=== PATIENT | female | born 1975 | race Caucasian/White ===

== ENCOUNTER 2019-05-04 08:37 | Outpatient (CLI) | payer OTHER, SELFPAY ==
--- NOTE | 2019-05-04 08:47 | MM_ITS ---
WS: [id number] DIAGNOSTIC BILATERAL DIGITAL MAMMOGRAM WITH CAD HISTORY: No palpable area. COMPARISON: 03/04/2018 and 06/13/2015 and 03/18/2018 TECHNIQUE: Bilateral craniocaudad, mediolateral oblique, and mediolateral views are submitted. Spot c ompression RIGHT CC. Computer aided detection utilized. Breast composition: There are scattered areas of fibroglandular density. Normal parenchymal pattern. There are no mammographic abnormalities that need additional imaging. Scattered benign calcifications . No nipple retraction or skin thickening. No palpable area. No additional imaging is necessary at this time. Last mammogram reviewed from 03/04/2018 demonstrated a small lobulated nodule in the medial RIGHT breast which is no longer present. No enlarging masses o r distortion. No ultrasound is necessary. MM/[place] [id number] IMPRESSION: BI-RADS: 2-Benign FOLLOW UP: 1 Year Follow-up
== END 2019-05-04 08:38 | disposition home or self-care (01) ==
LOC: RADSHAW 08:41
PROVIDERS: Family Provider Family Medicine; PCP Nurse Practitioner Family; Visit Provider Nurse Practitioner Family
DX: N63.10 Unspecified lump in the right breast, unspecified quadrant (principal)
CPT/HCPCS: 77066

== ENCOUNTER → 2019-06-05 09:13 | Outpatient (BNVA) | payer OTHER, SELFPAY | PROVIDERS: Family Provider Family Medicine; PCP Nurse Practitioner Family; Visit Provider Nurse Practitioner Family | DX: E11.9 Type 2 diabetes mellitus without complications (principal) | CPT/HCPCS: 80048; 83036; 85007; 85027 ==

== ENCOUNTER → 2019-09-26 09:35 | Outpatient (BNVA) | payer OTHER, SELFPAY | PROVIDERS: Family Provider Family Medicine; PCP Nurse Practitioner Family; Visit Provider Nurse Practitioner Family | DX: E11.9 Type 2 diabetes mellitus without complications (principal); E78.9 Disorder of lipoprotein metabolism, unspecified; E03.9 Hypothyroidism, unspecified | CPT/HCPCS: 80053; 80061; 83036; 84443 ==

== ENCOUNTER → 2020-02-05 11:43 | Outpatient (BNVA) | payer OTHER, SELFPAY | PROVIDERS: Family Provider Family Medicine; PCP Nurse Practitioner Family; Visit Provider Nurse Practitioner Family | DX: Z11.59 Encounter for screening for other viral diseases (principal); J01.90 Acute sinusitis, unspecified; B96.89 Other specified bacterial agents as the cause of diseases classified elsewhere | CPT/HCPCS: 87635 ==

== ENCOUNTER → 2020-02-28 08:57 | Outpatient (BNVA) | payer OTHER, SELFPAY | PROVIDERS: Family Provider Family Medicine; PCP Nurse Practitioner Family; Visit Provider Nurse Practitioner Family | DX: E03.9 Hypothyroidism, unspecified (principal); E11.65 Type 2 diabetes mellitus with hyperglycemia; Z79.899 Other long term (current) drug therapy | CPT/HCPCS: 80053; 83036; 84443 ==

== ENCOUNTER → 2020-03-06 08:00 | Outpatient (BNVA) | payer OTHER, SELFPAY | PROVIDERS: Family Provider Family Medicine; Visit Provider Counselor Professional | DX: F63.0 Pathological gambling (principal); F41.1 Generalized anxiety disorder; F33.2 Major depressive disorder, recurrent severe without psychotic features | CPT/HCPCS: 90834 ==

== ENCOUNTER → 2020-03-08 07:40 | Outpatient (BNVA) | payer OTHER, SELFPAY | PROVIDERS: Family Provider Family Medicine; Visit Provider Counselor Professional | DX: F33.2 Major depressive disorder, recurrent severe without psychotic features (principal); Z63.0 Problems in relationship with spouse or partner; F41.1 Generalized anxiety disorder | CPT/HCPCS: 90834 ==

== ENCOUNTER → 2020-03-11 08:21 | Outpatient (BNVA) | payer OTHER, SELFPAY | PROVIDERS: Family Provider Family Medicine; Visit Provider Counselor Professional | DX: F33.2 Major depressive disorder, recurrent severe without psychotic features (principal); Z63.0 Problems in relationship with spouse or partner; F41.1 Generalized anxiety disorder | CPT/HCPCS: 90834 ==

== ENCOUNTER 2020-06-11 06:00 | Outpatient (CLI) | payer SELFPAY | END 2020-06-11 06:01 | disposition home or self-care (01) | LOC: LAB 06-23 10:49 | PROVIDERS: PCP Nurse Practitioner Family; Visit Provider Nurse Practitioner Family | DX: N76.0 Acute vaginitis (principal); B37.9 Candidiasis, unspecified | CPT/HCPCS: 87512; 87799 ==

== ENCOUNTER → 2020-06-20 08:10 | Outpatient (BNVA) | payer OTHER, SELFPAY | PROVIDERS: Visit Provider Dermatology | DX: Z13.6 Encounter for screening for cardiovascular disorders (principal) | CPT/HCPCS: 80061; 82947; 83036 ==

== ENCOUNTER → 2020-08-06 08:23 | Outpatient (BNVA) | payer OTHER, SELFPAY | PROVIDERS: Visit Provider Nurse Practitioner Family | DX: E03.9 Hypothyroidism, unspecified (principal) | CPT/HCPCS: 84443 ==

== ENCOUNTER → 2020-11-13 08:37 | Outpatient (BNVA) | payer OTHER, SELFPAY | PROVIDERS: PCP Nurse Practitioner Family; Visit Provider Nurse Practitioner Family | DX: E11.65 Type 2 diabetes mellitus with hyperglycemia (principal); E03.9 Hypothyroidism, unspecified; F32.9 Major depressive disorder, single episode, unspecified; E78.5 Hyperlipidemia, unspecified | CPT/HCPCS: 80053; 80061; 83036; 84443 ==

== ENCOUNTER → 2021-02-11 08:31 | Outpatient (BNVA) | payer OTHER, SELFPAY | PROVIDERS: PCP Nurse Practitioner Family; Visit Provider Nurse Practitioner Family | DX: E11.65 Type 2 diabetes mellitus with hyperglycemia (principal) | CPT/HCPCS: 80053; 83036 ==

== ENCOUNTER 2021-02-15 11:58 | Emergency (ER) | payer OTHER, SELFPAY ==
[2021-02-15 12:07] VITALS: BP 138/86; PULSE 85; RESP 18; TEMP 36.6; O2SAT 97; BMI 31.3
[2021-02-15 12:19] VITALS: BP 145/103; PULSE 84; RESP 16; TEMP 36.9; O2SAT 97
--- NOTE | 2021-02-15 12:26 | ED_ITS ---
HPI - Fall General: Chief Complaint: Extremity Injury, Lower Stated Complaint: L HIP INJURY:FELL THURS PM/PCP STATES FX Time Seen by Provider: 02/15/21 12:01 Source: patient Mode of arrival: ambulatory Limitations: no limitations History of Present Illness: HPI Narrative: Patient is a 45-year-old female who presents to ED today along with her for evaluation of her left hip injury. Patient tells me 2 days ago she was standing on a stool at a height of approximately 2-3 feet hanging curtains when she accidentally fell off and landed onto her left hip. Patient states she was seen at [facility] in [place] and had an x-ray of the hip performed which showed a questionable lucency through her greater trochanter suspicious for nondisplaced fracture and recommended CT scan for further evaluation. Patient is also telling me she is having lower back pain. She has been ambulatory since the fall but has significant discomfort and states she had to leave work early yesterday secondary to this pain. She denies any other injuries or complaints at this time. She denies striking her head or LOC during the fall. No neck pain. MD complaint: fall Onset (ago): day(s) Fall from: from height (distance) (2-3 ft) Fall witnessed: yes, by family Place fall occurred: home Loss of consciousness: None Prolonged down time: no Symptoms prior to fall: none Context: tripped/slipped Associated symptoms-after fall: Denies abdominal pain, chest pain, hematuria, lightheadedness or neck pain Review of Systems Const: Denies: fever(s), chills or body aches Eyes: Denies: change in vision Card: Denies: chest pain, palpitations, lightheadedness, syncope or pre-s yncope Resp: Denies: dyspnea GI: Denies: abdominal pain, nausea or vomiting : Denies: flank pain, dysuria or hematuria Musc: Reports: back pain and joint pain (L hip); Denies: neck pain, extremity pain, joint warmth, joint stiffness, limited range of motion, muscle cramps or muscle weakness Skin/Breast: Reports: other (abrasion/bruising ) Neuro: Denies: numbness in extremities, weakness in extremities or sensory changes [facility] ED PFSH: Medical History Anxiety Breast implant status Cystocele with rectocele 2 repairs Diabetes type 2, uncontrolled Hypothyroidism Psychiatric care Surgical History H/O tubal ligation H/O: hysterectomy S/P section Family History Mother Diabetes Thyroid condition Heart disease Father Diabetes Hyperlipidemia Hypertension Heart disease Grandmother Diabetes maternal Heart disease maternal Breast cancer, Onset Age: 67 maternal Grandfather Heart disease maternal Family/Other Uterine cancer, Onset Age: 65 maternal aunt Ovarian cancer, Onset Age: 65 maternal aunt Denies family history of Colon cancer Clotting disorder Anesthesia complication Bleeding disorder Stroke Social History Smoking and tobacco status: never smoked Second hand smoke exposure: No Alcohol intake: never Current gender identity: Female Physical Exam Const: COMMON NORMALS: no acute distress, patient oriented x3, no limitations, alert and well nourished GENERAL APPEARANCE: cooperative ORIENTATION/CONSCIOUSNESS: Yes awake, Yes oriented to person, Yes oriented to place and Yes oriented to time HENMT: COMMON NORMALS: normocephalic and atraumatic HEAD & SCALP: normal to inspection, normocephalic and atraumatic Neck/C-Spine: COMMON NORMALS: full ROM CERVICAL SPINE: No pain with cervical ROM and No Cervical spine tenderness Back/Pelvis: THORACIC SPINE/UPPER BACK: Yes normal to inspection, Yes thoracic ROM normal and No thoracic spinal tenderness LUMBAR SPINE/LOWER BACK: Yes lumbar ROM normal, Yes lumbar spinal tenderness Lumbar spinal tenderness location: L4 and L5 and Yes paraspinal muscle tenderness Lumbar paraspinal muscle tenderness: left PELVIS: Yes buttocks normal SACRUM: tenderness OTHER: TTP L lateral hip overlying greater trochanter; skin with mod superficial abrasion and surrounding ecchymosis Extremity: GENERAL: Yes normal exam except as noted LEFT LOWER EXTREMITY: Yes hip joint (TTP lateral; full but painful ROM) Left hip: Yes neurovascular exam (normal), Yes knee joint Left knee: Yes ROM (normal) and Yes foot & digits (normal DP/PT pulses and cap refill) Neuro: COMMON NORMALS: patient oriented x3, moves all extremities, no focal motor deficits and no sensory deficits noted SENSORIUM/ORIENTATION: Yes alert, Yes oriented to person, Yes oriented to place and Yes oriented to time Skin: NARRATIVE SKIN EXAM: see pelvis/extremity for pertinent skin findings; otherwise normal skin exam Course Vital Signs: Vital signs: Vital Signs Temperature 98.3 F 02/15/21 13:42 Pulse Rate 68 02/15/21 13:42 Respiratory Rate 16 02/15/21 13:42 Blood Pressure 115/67 02/15/21 13:42 Pulse Oximetry 97 02/15/21 13:42 MDM - Fall MDM Narrative: Medical decision making narrative: CT bony pelvis/lumbar spine negative for acute fracture. Patient is stable for DC with plan for pain control. Follow up with PCP in 3-5 days if pain is not improving. Imaging Data^: CT bony pelvis: Radiologist's impression: Rosie Graham[address] [place] [id number] Scan ReportSigned Patient: Marlin Sargent #: [id number]: 1975Acct#:[id number]/Sex: 45 / FADM Date: 02/15/21Loc: ERRoom/Bed:Attending Dr: Ordering Provider/Ordering MD: Isadora Singh Date of Service: 02/15/21 Procedure(s): CT bony pelvis [id number] Accession Number(s): [id number] Report Number: [id number] PROCEDURE INFORMATION: Exam: CT Pelvis Without Contrast; Skeletal Exam date and time: 02/15/2021 12:25 PM Age: 45 years old Clinical indication: Injury or trauma; Fall; Blunt trauma (contusions or hematomas); Left; Hip; Additional info: Fall, pain, questionable FX on XR TECHNIQUE: Imaging protocol: Computed tomography images of the pelvis without contrast. Exam focused on the skeletal structures. Radiation optimization: All CT scans at this facility use at least one of these dose optimization techniques: automated exposure control; mA and/or kV adjustment per patient size (includes targeted exams where dose is matched to clinical indication); or iterative reconstruction. COMPARISON: 1. CT abdomen pelvis w con* [id number] 04/24/2019 10:[address] lumbar spine wo con* [id number] 02/15/2021 12:40:37 PM RADIATION DOSE METRICS: Total DLP (mGy-cm): 844.73 FINDINGS: Bowel: Included bowel normal in caliber. No inflammatory changes. Evidence of appendectomy. Bladder: Bladder partially filled and normal in appearance. Included ureters normal in caliber. No stones. Reproductive: Hysterectomy. No adnexal mass. Bones/joints: Bones intact and normally aligned. No fracture or dislocation. Soft tissues: No hematoma. Postsurgical changes of the ventral abdominal wall with chronic lens shaped fluid collection superficial to the rectus sheath at midline measuring 5.1 x 1.3 x 3.0 cm and 10 Hounsfield units (no axial image 44 series 3 and sagittal image 65 series 602), similar to prior. Nothing to suggest infection. CT/CT bony pelvis [id number] IMPRESSION: No acute findings. Radiation Dose CTDIVOL = (mGy): DLP = 844.73 (mGy-cm) Dictated By:Rajinder Trujillo MDSigned By:Rajinder Trujillo MDSigned Date/Time:02/15/21 1327DD/ 1225 CT lumbar: Radiologist's impression: [address] [id number] Scan ReportSigned Patient: Marlin Sargent #: [id number]: 1975Acct#:[id number]/Sex: 45 / FADM Date: 02/15/21Loc: ERRoom/Bed:Attending Dr: Ordering Provider/Ordering MD: Isadora Singh Date of Service: 02/15/21 Procedure(s): CT lumbar spine wo con* [id number] Accession Number(s): [id number] Report Number: [id number] PROCEDURE INFORMATION: Exam: CT Lumbar Spine Without Contrast Exam date and time: 02/15/2021 12:24 PM Age: 45 years old Clinical indication: Injury or trauma; Fall; Blunt trauma (contusions or hematomas); Additional info: Fall/back pain TECHNIQUE: Imaging protocol: Computed tomography images of the lumbar spine without contrast. Radiation optimization: All CT scans at this facility use at least one of these dose optimization techniques: automated exposure control; mA and/or kV adjustment per patient size (includes targeted exams where dose is matched to clinical indication); or iterative reconstruction. COMPARISON: 1. CT bony pelvis [id number] 02/15/2021 12:[address] abdomen pelvis w con* [id number] 04/24/2019 10:18:30 AM RADIATION DOSE METRICS: Total DLP (mGy-cm): 2327.93 FINDINGS: Vertebrae: No acute fracture. There is a chronic unilateral pars defect at L5 on the right, unchanged since 2019. Normal alignment of the spine. Discs/Spinal canal/Neural foramina: No significant disc protrusion. No severe spinal canal stenosis. No significant neural foraminal narrowing. Soft tissues: Unremarkable. Other: Incidental punctate nonobstructing right lower pole renal calculus unchanged from prior. CT/CT lumbar spine wo con* [id number] IMPRESSION: No acute findings. Radiation Dose CTDIVOL = (mGy): DLP = 2327.93 (mGy-cm) Dictated By:Rajinder Trujillo MDSigned By:Rajinder Trujillo MDSigned Date/Time:02/15/21 1331DD/ 1224 Discharge Plan Discharge Patient Disposition: Home Clinical Impression: Contusion of hip and thigh Qualifiers: Encounter type: initial encounter Laterality: left Qualified Code(s): S70.02XA - Contusion of left hip, initial encounter Condition: Stable Prescriptions: New hydrocodone-acetaminophen 5-325 mg tablet 1 tab PO Q6H PRN (Reason: pain) Qty: 14 RF: 0 No Action metformin 1,000 mg tablet 1,000 mg PO BID RF: 0 metformin 500 mg tablet 500 mg PO DAILY RF: 0 ceftriaxone 1 gram recon soln 1 gm IM ONCE Qty: 1 RF: 0 lidocaine (PF) 20 mg/mL (2 %) solution 20 mg IM ONCE Qty: 1 RF: 0 Lantus Solostar U-100 Insulin 100 unit/mL (3 mL) insulin pen 42 unit SUBCUT DAILY RF: 0 estradiol 2 mg (7.5 mcg /24 hour) ring 1 vag ring vaginal Q90D Qty: 1 RF: 4 citalopram [Celexa] 40 mg tablet 40 mg PO DAILY RF: 0 aripiprazole [Abilify] 2 mg tablet 2 mg PO DAILY Qty: 30 RF: 2 propranolol 20 mg tablet 20 mg PO BID PRN (Reason: anxiety) Qty: 60 RF: 2 cyclobenzaprine 10 mg tablet 10 mg PO TID PRN (Reason: muscle spasm) Qty: 30 RF: 0 (DME) Dexcom G5 Single Needle Operator Misc See Rx Instructions .ROUTE .MEDSUPPLY Qty: 1 RF: 0 (DME) blood-glucose transmitter Device See Rx Instructions .ROUTE .MEDSUPPLY Qty: 1 RF: 1 estradiol 0.01 % (0.1 mg/gram) cream 1 appful vaginal .THREE TIMES DELFINO Qty: 42.5 RF: 1 (DME) Dexcom G5-G4 Sensor Device See Rx Instructions .ROUTE .MEDSUPPLY Qty: 3 RF: 3 levothyroxine 137 mcg tablet 137 mcg PO DAILY Qty: 30 RF: 1 fluconazole [Diflucan] 150 mg tablet 150 mg PO Q3D Qty: 2 RF: 1 Discharge Orders: Discharge ED (Routine); Ordered 02/15/21 Ordered By: Isadora Singh Referrals: Bekah Daniels FNP [Primary Care Provider] - Patient Instructions: Contusion in Adults (ED), Opioid Safety Activity Restrictions/Additional Instructions: [facility] is committed to fighting the nationwide opiate epidemic. We are providing ALL patients with information regarding opiate safety. If you received opiate pain medication during your stay or if you received a prescription for opiate pain medication-please review this handout. If not, you may disregard. Thank you. Coding Level of Care Code ED Reheater for Anisha Fwd Exam Detailed
[2021-02-15 12:30] VITALS: RESP 16; O2SAT 98
[2021-02-15] MEDS: morphine 4 mg/mL SDV 1 mL IM (12:30)
[2021-02-15 12:53] VITALS: BP 119/72; PULSE 64; RESP 16; O2SAT 96
[2021-02-15 13:42] VITALS: BP 115/67; PULSE 68; RESP 16; TEMP 36.8; O2SAT 97
== END 2021-02-15 13:48 | disposition home or self-care (01) ==
PROVIDERS: Emergency Provider Physician Assistant; PCP Nurse Practitioner Family
DX: S70.02XA Contusion of left hip, initial encounter (principal); S70.12XA Contusion of left thigh, initial encounter; Z79.84 Long term (current) use of oral hypoglycemic drugs; Z79.4 Long term (current) use of insulin; E11.9 Type 2 diabetes mellitus without complications; W07.XXXA Fall from chair, initial encounter
CPT/HCPCS: 72131; 72192; 96372; 99283; J2270

== ENCOUNTER 2021-02-21 16:22 | Outpatient (CLI) | payer OTHER, SELFPAY ==
--- NOTE | 2021-02-21 16:45 | MRR_ITS ---
PROCEDURE INFORMATION: Exam: MR Left Lower Extremity Joint Without Contrast; Hip Exam date and time: 02/21/2021 4:45 PM Age: 45 years old Clinical indication: Injury or trauma; Fall; Blunt trauma and swelling (edema); Hip and thigh or upper leg; Injury date: 1 week 02/15; Patient HX: PT. Reports continued left hip pain increased with weight bearing. PT. Has swelling of left thigh with large hematoma approx 4 cm diameter noted. ; Additional info: M25.552 - pain in left hip, PT. Has scanned xray reports and continue to have pain to TECHNIQUE: Imaging protocol: MR of the Left lower extremity joint without contrast. Exam focused on the hip. COMPARISON: CT bony pelvis [id number] 02/15/2021 12:38 PM FINDINGS: Bones and cartilage: There is stranding of the subcutaneous tissues along the lateral aspect of the left hip region, which given clinical history is consistent with contusion. Mild levocurvature of the lumbar spine noted. Joint spaces: No joint effusion. Labrum: Unremarkable. No tear. TENDONS: Tendons of iliopsoas group: Unremarkable. No evidence of tear. Tendons of medial compartment of thigh: Unremarkable. No evidence of tear. Tendons of lateral rotators of hip: Unremarkable. No evidence of tear. Tendons of gluteal group: Unremarkable. No evidence of tear. Muscles: Unremarkable. Soft tissues: Unremarkable. MR/MR hip LT wo con* [id number] IMPRESSION: Mild edematous changes of the subcutaneous tissues along the lateral aspect of the left hip region. Otherwise unremarkable MRI examination of the left hip/lower extremity. Radiation Dose CTDIVOL = (mGy): DLP = (mGy-cm)
== END 2021-02-21 16:23 | disposition home or self-care (01) ==
LOC: RADSHAW 16:34
PROVIDERS: PCP Nurse Practitioner Family; Visit Provider Nurse Practitioner Family
DX: M25.552 Pain in left hip (principal)
CPT/HCPCS: 73721

== ENCOUNTER 2021-03-06 10:15 | Outpatient (CLI) | payer OTHER, SELFPAY ==
--- NOTE | 2021-03-06 10:30 | MM_ITS ---
WS: [id number] BILATERAL DIGITAL SCREENING MAMMOGRAPHY WITH CAD CLINICAL INFORMATION: Z12.39 - Encounter for other screening for malignant neop... HISTORY: Screening mammogram. No current complaints. COMPARISON: 26 December 2019, TECHNIQUE: Bilateral CC and MLO views. FINDINGS: Bilateral breast implants appear mammographically intact. Scattered fibroglandular densities bilaterally. Punctate and clustered punctate calcifications. No s uspicious focal mass, asymmetry, calcifications, or architectural distortion. No evidence of malignan cy. MM/[place] [id number] IMPRESSION: BI-RADS: 2-Benign FOLLOW UP: 1 Year Follow-up Recommend return to annual screening mammography.
== END 2021-03-06 10:16 | disposition home or self-care (01) ==
PROVIDERS: PCP Nurse Practitioner Family; Visit Provider Nurse Practitioner Family
DX: Z12.39 Encounter for other screening for malignant neoplasm of breast (principal)
CPT/HCPCS: 77067

== ENCOUNTER 2021-04-02 13:22 | Outpatient (CLI) | payer OTHER, SELFPAY ==
[2021-04-02 14:07] LABS: Troponin(5th) Baseline 6 ng/L (0-10)
[2021-04-02 14:17] LABS: Alanine Aminotransferase 23 U/L (0-33); Albumin Level 4.3 g/dL (3.5-5.2); Alkaline Phosphatase 95 IU/L (35-105); Anion Gap 19.9 (5-19); Aspartate Amino Transferase 17 U/L (0-32); Blood Urea Nitrogen 9 mg/dL (6-20); Carbon Dioxide 21 mmol/L (22-29); Chloride 99 mmol/L (98-107); Globulin 3.1 g/dL (1.3-4.6); Glomerular Filtration Rate 76.9 mL/min (90-130); Glucose 361 mg/dL (65-115); Osmolality Calculated 295 mOsm/kg (285-295); Potassium 3.9 mmol/L (3.5-5.1); Sodium 136 mmol/L (136-145); Thyroid Stimulating Hormone 1.33 uIU/mL (0.27-4.20); Total Bilirubin 0.2 mg/dL (0.15-1.2); Total Protein 7.4 g/dL (6.6-8.7)
== END 2021-04-02 13:23 | disposition home or self-care (01) ==
LOC: LAB 13:29
PROVIDERS: PCP Nurse Practitioner Family; Visit Provider Nurse Practitioner Family
DX: E11.65 Type 2 diabetes mellitus with hyperglycemia (principal); E03.9 Hypothyroidism, unspecified; R07.89 Other chest pain
CPT/HCPCS: 36415; 80053; 81000; 84443; 84484

== ENCOUNTER 2021-04-15 15:31 | Outpatient (CLI) | payer OTHER, SELFPAY ==
--- NOTE | 2021-04-15 15:49 | MR_ITS ---
WS: [id number] MRI HEAD WITHOUT CONTRAST TECHNIQUE: Sagittal T1, T2 axial, T2 axial FLAIR, axial and coronal T1 images, axial susceptibility w eighted imaging, axial diffusion weighted images, and coronal T2 images were obtained. CLINICAL INFORMATION: UNSPECIFIED VISUAL LOSS COMPARISON: None. FINDINGS: No evidence of restricted diffusion to suggest acute ischemia. Ventricular system and basal cisterns are patent. A few tiny foci of T2 hyperintensity in the frontal subcortical and periventricular white matter. No significant parenchymal volume loss. Normal corpus callosum. Normal posterior fossa. Norm al vascular flow voids at the skull base. No extra-axial fluid collections. No evidence of mass or ma ss effect. No hemosiderin on susceptibly weighted images. Normal optic chiasm and pituitary infundibulum. Tempor al lobes and hippocampal formations are normal in appearance. Mild mucosal thickening right mastoid a ir cells. Paranasal sinuses are well aerated. MR/MR head wo con* [id number] IMPRESSION: 1. No evidence of restricted diffusion to suggest acute ischemia. 2. A few tiny foci of T2 hyperintensity in the frontal periventricular and sub cortical white matter nonspecific in a patient this age and statistically most likely incidental. However, this can be seen with migraine headaches, hypertens ion, and diabetes. Demyelinating disease is less likely but considering visual symptoms, recommend clinical correlation and exclusion of early demyelinating d isease. 3. No significant parenchymal volume loss. 4. No hemosiderin on susceptibly weighted images. 5. Normal optic chiasm and pituitary infundibulum. 6. No other significant findings.
== END 2021-04-15 15:32 | disposition home or self-care (01) ==
PROVIDERS: PCP Nurse Practitioner Family; Visit Provider Nurse Practitioner Family
DX: H54.7 Unspecified visual loss (principal)
CPT/HCPCS: 70551

== ENCOUNTER 2021-04-17 09:41 | Outpatient (CLI) | payer OTHER, SELFPAY ==
[2021-04-17 10:36] LABS: Erythrocyte Sedimentation Rate 12 mm/hr (0-15)
[2021-04-17 10:45] LABS: Estmated Average Glucose 292; Hemoglobin A1C 11.8 % (4.0-6.0)
[2021-04-17 10:46] LABS: C Reactive Protein 20.4 mg/L (0.0-4.9)
[2021-04-18 10:56] LABS: COMPLEMENT COMPONENT C3C 164 mg/dL (83-193); COMPLEMENT COMPONENT C4C 31 mg/dL (15-57)
[2021-04-18 13:41] LABS: COMPLEMENT, TOTAL (CH50) >60 U/mL (31-60)
[2021-04-18 15:08] LABS: Angiotensin Converting Enzyme 51 U/L (9-67)
[2021-04-21 10:28] LABS: THYROID PEROXIDASE ANTIBODIES <1 IU/mL (<9)
[2021-04-21 14:08] LABS: ANA SCREEN, IFA NEGATIVE (NEGATIVE)
[2021-04-21 14:57] LABS: CENTROMERE B ANTIBODY <1.0 NEG AI (<1.0 NEG); JO-1 ANTIBODY <1.0 NEG AI (<1.0 NEG); RNP ANTIBODY <1.0 NEG AI (<1.0 NEG); SCL-70 ANTIBODY <1.0 NEG AI (<1.0 NEG); SJOGREN'S ANTIBODY (SS-A) <1.0 NEG AI (<1.0 NEG); SM ANTIBODY <1.0 NEG AI (<1.0 NEG); SS-B <1.0 NEG AI (<1.0 NEG)
[2021-04-22 10:34] LABS: DNA AB (DS) CRITHIDIA,IFA NEGATIVE (NEGATIVE)
== END 2021-04-17 09:42 | disposition home or self-care (01) ==
LOC: LAB 09:43
PROVIDERS: PCP Nurse Practitioner Family; Visit Provider Specialist
DX: H53.9 Unspecified visual disturbance (principal)
CPT/HCPCS: 36415; 82164; 83036; 85651; 86140; 86160; 86162; 86235; 86255; 86334; 86376

== ENCOUNTER → 2021-04-30 08:50 | Outpatient (BNVA) | payer OTHER, SELFPAY | PROVIDERS: PCP Nurse Practitioner Family; Visit Provider Specialist | DX: H53.9 Unspecified visual disturbance (principal); H54.7 Unspecified visual loss | CPT/HCPCS: 82595 ==

== ENCOUNTER → 2021-05-01 08:14 | Outpatient (BNVA) | payer OTHER, SELFPAY | PROVIDERS: PCP Nurse Practitioner Family; Visit Provider Internal Medicine | DX: E03.9 Hypothyroidism, unspecified (principal); E11.65 Type 2 diabetes mellitus with hyperglycemia; E78.5 Hyperlipidemia, unspecified; H54.7 Unspecified visual loss | CPT/HCPCS: 82947; 84681 ==

== ENCOUNTER 2021-05-06 10:22 | Outpatient (CLI) | payer OTHER, SELFPAY ==
--- NOTE | 2021-05-06 10:38 | MR_ITS ---
WS: [id number] MRI HEAD WITHOUT AND WITH GADOLINIUM ENHANCEMENT WITH ATTENTION TO THE ORBITS. TECHNIQUE: Sagittal T1, T2 axial, T2 axial FLAIR, axial susceptibility weighted imaging, axial diffus ion weighted images, and coronal T2 images were obtained. Pre and post-T1 axial and post T1 coronal i mages. ADC and FSPGR images. High-resolution coronal T2 imaging. High-resolution Post gadolinium imag ing with attention to the orbits with fat saturation technique. CLINICAL INFORMATION: H54.7 - Unspecified visual loss COMPARISON: MRI April 15, 2021 FINDINGS: Correlation with MRI April 15, 2021 No evidence of restricted diffusion to suggest acute ischemia. Ventricular system and basal cisterns are patent. A few tiny foci of T2 hyperintensity in the frontal paraventricular white matter and subc ortical white matter unchanged from previous. No significant parenchymal volume loss. No hemosiderin on susceptibly weighted images. Normal posterior fossa. Normal vascular flow voids at the skull base. No extra-axial fluid collection s. No evidence of mass or mass effect. Paranasal sinuses are well aerated. Mild mucosal thickening ri ght mastoid tip. Normal optic chiasm and pituitary infundibulum. Normal cavernous sinuses and Meckel's cave. No abnorm al intracranial enhancement. Normal dural venous sinuses. Prechiasmatic optic nerves and intraorbital segments appear normal. No evidence of optic neuritis or optic nerve edema. Proximal 7th and 8th cranial nerves appear normal. Normal trigeminal nerve root en try zones. MR/MR head wo/w con [id number] IMPRESSION: 1. Normal optic chiasm and pituitary infundibulum. 2. Normal intraorbital and prechiasmatic optic nerves. No evidence of optic ne rve edema or optic neuritis. 3. No abnormal intracranial enhancement. 4. Normal dural venous sinuses. 5. No other significant changes compared to previous.
[2021-05-06] MEDS: gadobenate dimeglumine 20 mL vial IV (11:41)
== END 2021-05-06 10:23 | disposition home or self-care (01) ==
LOC: RADSHAW 10:25
PROVIDERS: PCP Nurse Practitioner Family; Visit Provider Specialist
DX: H54.7 Unspecified visual loss (principal)
CPT/HCPCS: 70553; A9577

== ENCOUNTER → 2021-10-23 08:38 | Outpatient (BNVA) | payer OTHER, SELFPAY | PROVIDERS: PCP Nurse Practitioner Family; Visit Provider Nurse Practitioner Family | DX: E03.9 Hypothyroidism, unspecified; E78.5 Hyperlipidemia, unspecified; I10 Essential (primary) hypertension; E11.65 Type 2 diabetes mellitus with hyperglycemia | CPT/HCPCS: 80053; 80061; 82043; 83036; 84443 ==